=== PATIENT | female | born 1975 | race Two or more races ===

== ENCOUNTER 2023-11-02 21:35 | Emergency (ER) | payer BC ==
[~2023-11-02] VITALS: Ht 170.2 cm; Wt 77.1 kg
[2023-11-02] MEDS ORDERED: ZYRTEC10 MG PO (22:05)
[2023-11-02] MEDS ORDERED: TETANUS & DIPHTHERIA TOX,ADULT 0.5 ML VIAL IM ONE (23:15)
[2023-11-02] MEDS ORDERED: KETOROLAC TROMETHAMINE 60 MG VIAL IM ONE (23:15)
== END 2023-11-02 23:24 | disposition home or self-care (01) ==
LOC: ER 21:35
DX: S01.81XA Laceration without foreign body of other part of head, initial encounter (principal); W05.1XXA Fall from non-moving nonmotorized scooter, initial encounter; Y93.89 Activity, other specified; Y92.89 Other specified places as the place of occurrence of the external cause; Y99.9 Unspecified external cause status